=== PATIENT | male | born 1990 | race African-American/Black ===

== ENCOUNTER 2017-01-02 23:21 | Emergency (ER) | payer MEDICAID ==
[~2017-01-02] VITALS: Ht 182.9 cm; Wt 86.0 kg
[2017-01-02] MEDS ORDERED: LIDOCAINE HCL 1% 20ML VIAL (Pyxis) INJ INFIL ONE (23:45)
[2017-01-03] MEDS ORDERED: MORPHINE SULFATE 4 MG/ML CPJ (NOT FOR IM USE) IV ONE ×3 (00:15→04:15)
[2017-01-03] MEDS ORDERED: CEFAZOLIN 1000MG PREMIX 50 ML IV ONE (00:15)
[2017-01-03] MEDS ORDERED: LIDOCAINE HCL 1% 20ML VIAL (Pyxis) INJ INFIL ONE (04:00)
[2017-01-03 07:27] VITALS: BP 145/75
== END 2017-01-03 07:28 | disposition home or self-care (01) ==
LOC: ER 23:22
DX: S62.615B Displaced fracture of proximal phalanx of left ring finger, initial encounter for open fracture (principal); F17.200 Nicotine dependence, unspecified, uncomplicated; F12.10 Cannabis abuse, uncomplicated; X58.XXXA Exposure to other specified factors, initial encounter; Y93.89 Activity, other specified; Y92.89 Other specified places as the place of occurrence of the external cause; Y99.8 Other external cause status
CPT/HCPCS: 29130; 73130; 96365; 96375; 99285; J0690; J2270; J3490; Z7610

== ENCOUNTER 2017-01-09 15:22 | Emergency (ER) | payer MEDICAID ==
[~2017-01-09] VITALS: Ht 180.3 cm; Wt 91.0 kg
[2017-01-09 15:34] VITALS: BP 147/71
== END 2017-01-09 21:00 | disposition left against medical advice (07) ==
LOC: ER 15:22
DX: Z53.21 Procedure and treatment not carried out due to patient leaving prior to being seen by health care provider (principal); F12.10 Cannabis abuse, uncomplicated; F17.210 Nicotine dependence, cigarettes, uncomplicated